=== PATIENT | female | born 1995 | race Caucasian/White ===

== ENCOUNTER 2021-12-27 14:03 | Emergency (ER) | payer OTHER ==
[~2021-12-27] VITALS: Ht 154.9 cm; Wt 115.2 kg
[2021-12-27] MEDS ORDERED: SYNTHROID100 MCG PO (14:54)
== END 2021-12-27 18:45 | disposition home or self-care (01) ==
LOC: ER 14:03
DX: O21.0 Mild hyperemesis gravidarum (principal); Z3A.08 8 weeks gestation of pregnancy

== ENCOUNTER 2022-04-12 13:53 | Emergency (ER) | payer OTHER ==
[~2022-04-12] VITALS: Ht 154.9 cm; Wt 109.8 kg
[~2022-04-12 13:53] MED LIST: SYNTHROID100 MCG PO
== END 2022-04-12 18:24 | disposition home or self-care (01) ==
LOC: ER 13:53
DX: O26.92 Pregnancy related conditions, unspecified, second trimester (principal); S09.90XA Unspecified injury of head, initial encounter; W31.89XA Contact with other specified machinery, initial encounter; Y93.9 Activity, unspecified; Y92.9 Unspecified place or not applicable; Z3A.26 26 weeks gestation of pregnancy

== ENCOUNTER 2022-04-18 06:21 | Inpatient (IN) | payer OTHER ==
[~2022-04-18] VITALS: Ht 152.4 cm; Wt 108.9 kg
[2022-04-18] MEDS ORDERED: PRENATAL + DHA1 EAC1 (07:03)
[2022-04-21] MEDS ORDERED: NIFEDIPINE ER60 MG PO (08:51)
== END 2022-04-21 12:05 | disposition home or self-care (01) | DRG 833 ==
LOC: LDR 06:21 → OB/GYN 04-20 08:37
PROVIDERS: ADMIT Obstetrics & Gynecology Maternal & Fetal Medicine; ATTEND Obstetrics & Gynecology Maternal & Fetal Medicine
PROC: 4A1HXCZ Monitoring of Products of Conception, Cardiac Rate, External Approach (ICD-10-PCS; 2022-04-18)
PROC: BY4CZZZ Ultrasonography of Second Trimester, Single Fetus (ICD-10-PCS; principal; 2022-04-19)
PROC: BU4CZZZ Ultrasonography of Uterus and Ovaries (ICD-10-PCS; 2022-04-19)
DX: O60.02 Preterm labor without delivery, second trimester (principal); O30.042 Twin pregnancy, dichorionic/diamniotic, second trimester; Z3A.24 24 weeks gestation of pregnancy; Z20.822 Contact with and (suspected) exposure to COVID-19

== ENCOUNTER 2022-04-23 11:08 | Outpatient (CLI) | payer OTHER ==
[~2022-04-23 11:08] MED LIST changes: +NIFEDIPINE ER60 MG PO; +PRENATAL + DHA1 EAC1
== END 2022-04-23 12:28 | disposition home or self-care (01) ==
LOC: NST 11:08
PROVIDERS: ATTEND Obstetrics & Gynecology Maternal & Fetal Medicine
DX: Z34.82 Encounter for supervision of other normal pregnancy, second trimester (principal)

== ENCOUNTER 2022-05-05 11:38 | Inpatient (IN) | payer OTHER ==
[~2022-05-05] VITALS: Ht 154.9 cm; Wt 108.9 kg
[2022-05-05] MEDS ORDERED: IRON236 MG PO (16:42)
[2022-05-06] MEDS ORDERED: NIFEDIPINE ER60 M1 (08:42)
== END 2022-05-07 10:26 | disposition home or self-care (01) | DRG 833 ==
LOC: NST 11:38 → LDR 13:20 → OB/GYN 05-06 11:41
PROVIDERS: ADMIT Obstetrics & Gynecology Maternal & Fetal Medicine; ATTEND Obstetrics & Gynecology Maternal & Fetal Medicine
PROC: 4A1HXCZ Monitoring of Products of Conception, Cardiac Rate, External Approach (ICD-10-PCS; principal; 2022-05-05)
PROC: BY4DZZZ Ultrasonography of Second Trimester, Multiple Gestation (ICD-10-PCS; 2022-05-05)
PROC: BU4CZZZ Ultrasonography of Uterus and Ovaries (ICD-10-PCS; 2022-05-05)
DX: O26.892 Other specified pregnancy related conditions, second trimester (principal); R10.9 Unspecified abdominal pain; O30.042 Twin pregnancy, dichorionic/diamniotic, second trimester; Z3A.26 26 weeks gestation of pregnancy

== ENCOUNTER 2022-06-04 07:43 | Outpatient (CLI) | payer OTHER ==
[~2022-06-04 07:43] MED LIST changes: +IRON236 MG PO; +NIFEDIPINE ER60 M1
== END 2022-06-04 08:46 | disposition home or self-care (01) ==
LOC: NST 07:43
PROVIDERS: ATTEND Obstetrics & Gynecology
DX: Z34.83 Encounter for supervision of other normal pregnancy, third trimester (principal)

== ENCOUNTER 2022-06-09 11:28 | Outpatient (CLI) | payer OTHER | END 2022-06-09 12:36 | disposition home or self-care (01) | LOC: NST 11:28 | PROVIDERS: ATTEND Obstetrics & Gynecology Maternal & Fetal Medicine | DX: Z34.83 Encounter for supervision of other normal pregnancy, third trimester (principal) ==

== ENCOUNTER 2022-06-16 08:16 | Outpatient (CLI) | payer OTHER | END 2022-06-16 08:36 | disposition home or self-care (01) | LOC: NST 08:16 | PROVIDERS: ATTEND Obstetrics & Gynecology Maternal & Fetal Medicine | DX: Z34.83 Encounter for supervision of other normal pregnancy, third trimester (principal) ==

== ENCOUNTER 2022-06-24 08:05 | Outpatient (CLI) | payer OTHER | END 2022-06-24 08:35 | disposition home or self-care (01) | LOC: NST 08:05 | PROVIDERS: ATTEND Obstetrics & Gynecology | DX: Z34.83 Encounter for supervision of other normal pregnancy, third trimester (principal) ==

== ENCOUNTER 2022-06-28 21:02 | Inpatient (IN) | payer OTHER ==
[~2022-06-28] VITALS: Ht 152.4 cm; Wt 113.4 kg
== END 2022-06-30 09:00 | disposition home or self-care (01) | DRG 833 ==
LOC: LDR 21:02
PROVIDERS: ADMIT Obstetrics & Gynecology Gynecology; ATTEND Obstetrics & Gynecology Gynecology
PROC: 4A1HXCZ Monitoring of Products of Conception, Cardiac Rate, External Approach (ICD-10-PCS; principal; 2022-06-28)
DX: O16.3 Unspecified maternal hypertension, third trimester (principal); O30.043 Twin pregnancy, dichorionic/diamniotic, third trimester; Z3A.34 34 weeks gestation of pregnancy

== ENCOUNTER 2022-07-06 11:21 | Inpatient (IN) | payer OTHER ==
[~2022-07-06] VITALS: Ht 154.9 cm; Wt 2.3 kg
[2022-07-07] MEDS ORDERED: NIFEDIPINE ER60 M1 (09:17)
[2022-07-07] MEDS ORDERED: INTEGRA PLUS C1 EACH (09:17)
== END 2022-07-10 14:36 | disposition home or self-care (01) | DRG 786 ==
LOC: LDR 11:21 → O/R 07-07 13:10 → OB/GYN 07-07 15:40 → LDR 07-07 17:50 → OB/GYN 07-08 10:13
PROVIDERS: ADMIT Obstetrics & Gynecology Gynecology; ATTEND Obstetrics & Gynecology Gynecology
PROC: 4A1HXCZ Monitoring of Products of Conception, Cardiac Rate, External Approach (ICD-10-PCS; 2022-07-06)
PROC: 0UB00ZZ Excision of Right Ovary, Open Approach (ICD-10-PCS; 2022-07-07)
PROC: 30233N1 Transfusion of Nonautologous Red Blood Cells into Peripheral Vein, Percutaneous Approach (ICD-10-PCS; 2022-07-07)
PROC: 10D00Z1 Extraction of Products of Conception, Low, Open Approach (ICD-10-PCS; principal; 2022-07-07 13:00)
DX: O32.1XX2 Maternal care for breech presentation, fetus 2 (principal); O60.14X2 Preterm labor third trimester with preterm delivery third trimester, fetus 2; O72.1 Other immediate postpartum hemorrhage; D62 Acute posthemorrhagic anemia; O67.8 Other intrapartum hemorrhage; O30.043 Twin pregnancy, dichorionic/diamniotic, third trimester; Z3A.35 35 weeks gestation of pregnancy; Z37.2 Twins, both liveborn; Z20.822 Contact with and (suspected) exposure to COVID-19; O34.83 Maternal care for other abnormalities of pelvic organs, third trimester; N83.291 Other ovarian cyst, right side